=== PATIENT | male | born 2005 | race Caucasian/White ===

== ENCOUNTER 2025-01-22 02:21 | Observation (INO) | payer BC, SELFPAY ==
[2025-01-21 19:22] VITALS: BP 158/98
[2025-01-21 19:39] LABS: Hematocrit 41.7 % (39.0-52.0); Hemoglobin 14.7 g/dL (13.0-18.0); Mean Corp Hgb Conc. 35.3 g/dL (33.0-37.0); Mean Corpuscular Volume 87.2 fL (80.0-94.0); Nucleated Red Blood Cells % 0 % (-); Platelet Count 243 10^3/uL (130-400); Red Cell Dist. Width 12.1 % (11.5-14.5)
[2025-01-21 20:02] LABS: ALT (SGPT) 38 U/L (0-50); AST (SGOT) 66 U/L (17-59); Albumin 5.6 g/dl (3.5-5.0); Alkaline Phosphatase 61 U/L (38-126); Blood Urea Nitrogen 30 mg/dl (9-20); Calcium 10.6 mg/dl (8.4-10.2); Carbon Dioxide 26 mmol/L (22-30); Chloride 99 mmol/L (98-107); Glucose 91 mg/dl (70-99); Potassium 4.6 mmol/L (3.5-5.1); Sodium 137 mmol/L (135-145); Total Protein 8.9 g/dl (6.3-8.2); eGFR 54.92
[2025-01-21 23:23] VITALS: BMI 31.7
[2025-01-21] MEDS: NSS 1000 IV (23:23)
--- NOTE | 2025-01-22 00:07 | ED.GENMED ---
History of Present Illness
General
Chief Complaint: Dehydration Symptoms
Source: patient
Exam Limitations: none
Time Seen by Provider: 01/21/25 22:37
Nursing documentation reviewed up to this point in time: agreed with
History of Present Illness
History of Present Illness:
19-year-old male presenting to the emergency department today with concerns of diffuse crampy discomfort mainly to his legs but also weakness diffusely after playing football today for multiple hours. He claims that this was a very intense workout
and the first of the season. Has been urinating has been drinking plenty of fluids
Review of Systems
Review of Systems
Allergies reviewed?: Yes
All Other Systems: ROS reviewed and negative except as documented in HPI and ROS
Phy Exam
Physical Exam
Physical Exam:
GENERAL: Alert , in no apparent distress
EYE: pupils equal and reactive
NECK: Supple, no significant adenopathy.
ENT: o/p clr, mmm.
CARDIAC: Regular rate and rhythm .
LUNGS: Clear breath sounds bilaterally, no acute respiratory distress, no wheezes/rales/rhonchi
ABDOMEN: Soft, without focal tenderness, no r/g, no cvat
NEUROLOGICAL: Alert and oriented, no focal neuro deficits
SKIN: Warm and dry, skin intact.
MUSCULOSKELETAL: No edema, well perfused.
PSYCH: Normal and appropriate interaction.
Course
Orders/Labs/Results
Orders:
Orders
01/21/25 19:31
CPK [Creatine Phosphokinase] Urgent
Complete Blood Count/With Diff Urgent
Comprehensive Metabolic Panel Urgent
01/21/25 22:55
Urinalysis Reflex To Culture Urgent
Date Specimen was Collected: 01/22/25
Time Specimen was Collected: 01:36
01/21/25 23:00
0.9% Sodium Chloride 1000 ml [Nss] 1,000 ml IV 2,000 mls/hr
01/21/25 23:54
CMP [Comprehensive Metabolic Panel] Urgent
01/22/25 00:11
CKMB [CPK Isoenzyme] Urgent
01/22/25 01:17
EKG [Electrocardiogram (*1)] Urgent
Reason for Study: Fatigue / Weakness
EKG- Treatment ONCE
01/22/25 02:07
Admit/Transfer Patient As Directed
Co-Sign Provider:
Level of Care: Observation services
Assign to:: Medical/Surgical
Physician / Group: Fabienne
Diagnosis: Rhabdomyolysis
Code Status As Directed
Resuscitation Status: Full Code
PRN Pain Medication Management As Directed
May give lesser potent ordered pain med per pt: Yes
preference::
Protocol:: Medication orders for pain may be administered in a
manner that supports deferring to patient preference
when the pt is:
- Requesting an ordered lesser potent pain medication.
Least to most potent pain medications are defined
as: acetaminophen < NSAID < tramadol < opioids
(morphine, oxycodone, hydromorphone).
- Requesting a lesser dose of the same medication IF
ORDERED.
- Requesting a less intrusive route of administration
if both routes are prescribed by the provider (PO <
IV).
01/22/25 02:09
0.9% Sodium Chloride 500 ml [Nss] 500 ml IV BOLUS
01/22/25 02:38
0.9% Sodium Chloride 1000 ml [Nss] 1,000 ml IV 200 mls/hr
Acetaminophen [Tylenol] 650 mg PO Q4HPRN PRN
Bisacodyl [Dulcolax] 10 mg RECTAL [id number] PRN
Docusate W/Senna [Senokot-S] 1 tablet PO BIDPRN PRN
Ondansetron Injectable [Zofran] 4 mg IV Q6HPRN PRN
Polyethylene Glycol Powder [Miralax] 17 grams PO DAILYPRN PRN
01/22/25 02:38
Activity As Directed
Activity Level: As Tolerated
Pneumatic Compression Sleeves As Directed
Type: Knee high
Vital Signs As Directed
Frequency: Per unit guidelines
DX Deep Vein Thrombosis Video Routine
01/22/25 Breakfast
Regular
At Your Request: Full Participation
01/22/25 06:33
Basic Metabolic Panel IN AM
Creatine Phosphokinase IN AM
01/22/25 08:00
HydrOXYZINE [Atarax] 10 mg PO DAILY
Abnormal Lab Results
01/21/25 01/22/25 01/22/25
19:31 00:11 01:38
WBC 14.9 H 10^3/uL
(4.8-10.8)
Abs Immat Gran (auto) 0.1 H 10^3/uL
(0-0.05)
Absolute Neuts (auto) 9.8 H 10^3/uL
(1.4-6.5)
Absolute Monos (auto) 1.9 H 10^3/uL
(0.1-0.6)
Lymphocytes % 19.9 L %
(20.5-51.1)
Monocytes % 12.6 H %
(1.7-9.3)
BUN 30 H mg/dl 30 H mg/dl
(9-20) (9-20)
Creatinine 1.8 H mg/dL
(0.7-1.3)
Calcium 10.6 H mg/dl
(8.4-10.2)
AST 66 H U/L 68 H U/L
(17-59) (17-59)
Creatine Kinase 2951 H U/L
(55-170)
Total Creatine Kinase 3565 H U/L
(55-170)
CK-MB (CK-2) 4.5 H ng/ml
(0.0-3.4)
Total Protein 8.9 H g/dl
(6.3-8.2)
Albumin 5.6 H g/dl
(3.5-5.0)
Urine Ketones 1+ A
(Negative)
01/21/25 19:31
01/22/25 00:11
Vital Signs
Initial and Last Documented VS:
Initial Vital Signs
Temp Pulse Resp BP Pulse Ox
98.6 F 102 16 158/98 98
01/21/25 19:22 01/21/25 19:22 01/21/25 19:22 01/21/25 19:22 01/21/25 19:22
Last Documented Vital Signs
Temp Pulse Resp BP Pulse Ox
98 F 80 16 105/55 99
01/22/25 15:24 01/22/25 15:24 01/22/25 15:24 01/22/25 15:24 01/22/25 15:24
MDM/Problems Addressed
MDM/Problems Addressed:
19-year-old male presenting to the emergency department today with concerns of body cramps and generalized weakness. This occurred after a long and hard football practice today. This was the first of the season. On arrival mildly tachycardic
white count of 14.9 labs showing elevated creatinine and BUN as well as creatinine kinase concerning for early rhabdomyolysis.
*Pulse Oximetry
SaO2: 98
Oxygen Mode of Delivery: Room air
Patient hypoxic: no (99)
*Critical Care Note
Total Time (30-74mins, 75-104mins- exclusive of procedures): Not Applicable
ED Attending Note
-
Portions of this chart may have been created with voice recognition software.� Occasional wrong word or��sound alike� substitutions may have occurred due to the inherent limitations of voice recognition software.
Discharge Plan
Departure
Patient Disposition: Admit
Date of Disposition: 01/22/25
Time of Disposition: 01:21
Admit to: Med/Surg
Admit to doctor: Fabienne
Presentation/result/management discussed w/ accepting MD/DO: Hospitalist
Patient with high blood pressure during this ER visit?: No
Condition: Good
Covid-19: Not Applicable
Discharge Problem:
Rhabdomyolysis
Interventions
Interventions:
*Risk Screen - Suicide Last Done: 01/21/25 19:22
*General Assessment Last Done: 01/21/25 19:22
*Neglect/Abuse Screening Last Done: 01/21/25 19:22
*ED- Fall Risk Assessment Last Done: 01/21/25 19:22
*ED COVID-19 Vaccine History Last Done: 01/21/25 19:22
*Nursing Disposition Last Done: 01/22/25 06:50
ED- Cardiac Assessment Last Done: 01/22/25 01:40
ED- Neurological Assessment Last Done: 01/22/25 01:40
ED- Pulmonary Assessment Last Done: 01/22/25 01:40
[2025-01-22] MEDS: NSS 1000 IV ×2 (00:14→03:07)
[2025-01-22 00:53] LABS: ALT (SGPT) 33 U/L (0-50); AST (SGOT) 68 U/L (17-59); Albumin 4.5 g/dl (3.5-5.0); Alkaline Phosphatase 58 U/L (38-126); Blood Urea Nitrogen 30 mg/dl (9-20); Calcium 9.1 mg/dl (8.4-10.2); Carbon Dioxide 24 mmol/L (22-30); Chloride 105 mmol/L (98-107); Estimated Creatinine Clearance 112 ml/min; Glucose 99 mg/dl (70-99); Potassium 3.8 mmol/L (3.5-5.1); Sodium 137 mmol/L (135-145); Total Protein 6.8 g/dl (6.3-8.2); eGFR > 60.00
[2025-01-22 01:26] LABS: CKMB 4.5 ng/ml (0.0-3.4)
[2025-01-22 01:40] VITALS: BP 131/88
[2025-01-22 01:54] LABS: Urine Character Clear (Clear)
--- NOTE | 2025-01-22 02:10 | HPS.HSE ---
Family Physician
-
Family Physician: * NONE
Chief Complaint
-
Muscle cramps
History of Present Illness
This is a 19-year-old male with no significant past medical history presenting to the emergency department with diffuse crampy discomfort mainly to his legs but also weakness diffusely after playing football today for multiple hours. He claims that
this was a very intense workout and the first of the season.
Patient reports 4 hours of strenuous physical activity where he states he did double reps. After finishing at 4 PM he went home and developed calf cramps. Over time the cramps started affecting his overall legs then body and chest. Reports
fatigue. He denies seeing any swelling. He had difficulty walking. He had attempted to hydrate himself throughout the day with electrolytes and plenty of fluids. Has been urinating has been drinking plenty of fluids. He denies any changes to
the color of his urine. Patient reports use of creatine and carnitine supplements only.
In the emergency department he was afebrile, blood pressure was 130/88 with a pulse of 70 satting 98% on room air. ECG shows a normal sinus rhythm at a rate of [address] or T wave changes. His UA was negative for blood. Mild ketones
slightly elevated specific gravity. His creatinine was elevated to 1.8 on initial admission. Had a white count of 14.9. CBC otherwise unremarkable, electrolytes otherwise normal.
Medical History
Past Medical History
Past Medical History: Reports None
Past Surgical History: Reports None
Social History
Tobacco: Non-smoker
Alcohol: None
Drug: None
Personal: Single
Family History
Family History: Not pertinent
Allergies / Home Medications
Allergies reflects when Allergies were last updated in [facility].
Home Medications with original date entered in [facility]
Allergy/Medication List:
Allergies
Allergy/AdvReac Type Severity Reaction Status Date / Time
No Known Allergies Allergy Verified 01/21/25 19:25
Home Medications
hydroxyzine HCl 10 mg tablet 10 mg PO DAILY 01/22/25
Review of Systems
-
Constitutional: Reports No Symptoms
EENT: Reports No Symptoms
Respiratory: Reports No Symptoms
Cardiac: Reports No Symptoms
Abdomen/GI: Reports No Symptoms
: Reports No Symptoms
Musculoskeletal: Reports No Symptoms
Skin: Reports No Symptoms
Neurological: Reports No Symptoms
Endocrine: Reports No Symptoms
Hematologic/Lymphatic: Reports No Symptoms
Psych: Reports No Symptoms
Physical Exam
Vital Signs
Vital Signs
Temp Pulse Resp BP Pulse Ox
98.6 F 78 16 131/88 98
01/21/25 19:22 01/22/25 01:40 01/22/25 01:40 01/22/25 01:40 01/22/25 01:40
Physical Exam
General: Well Developed, Well Nourished and No Apparent Distress
HEENT: NormoCephalic, Moist mucous membranes and Atraumatic
Respiratory: Clear
Cardiac: S1/S2 and Regular Rhythm; No Murmur or Rub
GI: Soft, Non Tender, Non Distended and Normal Bowel Sounds; No Organomegaly
Rectal: Deferred by Provider
Musculoskeletal: No Clubbing, No Cyanosis and No Edema
Skin: No Rash
Neuro: Nonfocal/grossly intact
Laboratory Results
-
01/21/25 19:31
01/22/25 00:11
Laboratory Results
Total Bilirubin 0.8 mg/dl (0.2-1.3) 01/22/25 00:11
AST 68 U/L (17-59) H 01/22/25 00:11
ALT 33 U/L (0-50) 01/22/25 00:11
Alkaline Phosphatase 58 U/L (38-126) 01/22/25 00:11
Data Reviewed
-
Medical Tests (Nuc Med, Echo, EKG etc): Image Personally Visualized and interpreted
Lab Data: Labs Reviewed by me
Impression/Plan
-
IMPRESSION:
19-year-old presenting to the emergency department with bilateral muscle cramps and aches and pains following intense physical activity for beginning of football season. Found to have mild rhabdo and dehydration. CPK currently over 3000,
creatinine was initially 1.8 down to 1.3 with a BUN of 30. UA is unremarkable. He is urinating normally.
PLAN:
Rhabdomyolysis -mild, likely secondary to acute strenuous activity without comorbid conditions or exacerbating factors
-admit to MedSurg observation
-Continue with 200 mL/h normal saline x 1 L
-Monitor ins and outs
-Trend CPK, if flat or declining, patient likely can be discharged given stable creatinine
-Pain control and antiemetic
DVT prophylaxis�SCDs
CODE STATUS�full code
[2025-01-22] MEDS: NSS 500 IV (02:13)
[2025-01-22 03:11] VITALS: BP 124/66
--- NOTE | 2025-01-22 07:30 | W.PN.HOSP.TC ---
Addendum entered and electronically signed by Rio Escobar MD 01/22/25 19:22:
Attending Addendum:
I saw and evaluated the patient. I reviewed the resident�s note and agree with findings and plan as documented in the resident�s note. Sub: Still with muscle pain now in left side of neck but overall improved. Urinating frequently due to IVF. Wants
to go home. No CP palps fevers chills. Full 12 point ROS reviewed and negative except as documented Exam: Vitals reviewed in chart GEN-NAd heart RRR lungs cta B/L Neck TTP left SM- no LAD abd soft LE no edema
PLAN:
Rhabdomyolysis -secondary to acute strenuous activity without comorbid conditions or exacerbating factors
-start LR @ 200mls/hr x 1 liter prior to DC
-Monitor ins and outs
-CPK trending up still not yet peaked
-encouraged po fluids as OP and no strenuous activity x 1 week then reassess by PCP
-No ekg changes electrolytes WNL
-stable for DC
# Elevated AST- due to rhabdo
# LONNIE- secondaryt o rhabdo and dehydration - resolved prior to DC
DVT prophylaxis�SCDs
CODE STATUS�full code
Time spent coordinating care, DC planning, review of DC plan of care with resident, transition of care, review of records, med rec/scripts sent electronically, consults, notes, d/w consultants, nursing, family, and CM� 31 mins >50% of this time was
devoted to counseling and coordination of care
Original Note:
Today's Communication/Plan
-
Counselled on disease pathology and management
For discharge home and gradual return to regular physical activity after a week
Assessment / Plan
Assessment / Plan
IMPRESSION/PLAN
Rhabdomyolysis, Exertional, Improving
-Monitor ins and outs
-Trend electrolyte/ bun/cr, if flat or declining, discharge
-Discharge home later today
CODE STATUS�full code
Anticipated Discharge: Today
Subjective/Interval History
-
Date of Service: January 22, 2025
Patient met lying in bed
C/o elodia lower leg pain
Objective Data
-
Labs:
Laboratory Results
01/21/25 01/22/25 01/22/25
19:31 00:11 06:33
WBC 14.9 H
Hgb 14.7
Hct 41.7
Plt Count 243
Sodium 137 137 Pending
Potassium 4.6 3.8 Pending
Chloride 99 105 Pending
Carbon Dioxide 26 24 Pending
BUN 30 H 30 H Pending
Creatinine 1.8 H 1.3 Pending
Glucose 91 99 Pending
Calcium 10.6 H 9.1 D Pending
Total Bilirubin 0.9 0.8
AST 66 H 68 H
ALT 38 33
Alkaline Phosphatase 61 58
Vital Signs:
Vital Signs
Temp Pulse Resp BP Pulse Ox
98.6 F 74 16 124/66 97
01/21/25 19:22 01/22/25 03:11 01/22/25 03:11 01/22/25 03:11 01/22/25 03:11
Review of Systems
-
History Source: Patient
Constitutional: Reports No Symptoms
EENT: Reports No Symptoms Reported
Respiratory: Reports No Symptoms
Cardiac: Reports No Symptoms
Abdomen/GI: Reports No Symptoms
Breast: Reports No Symptoms
Genitourinary: Reports No Symptoms
Musculoskeletal: Reports Muscle Pain (Gen Muscle pain, worse in the lower limbs, bilaterally)
Neuro: Reports No Symptoms
Physical Exam
-
General: Well Developed
HEENT: Normocephalic
Respiratory: Clear to Auscultation
Cardiac: Regular Rhythm and S1/S2
GI: Soft, Nontender and Nondistended
Genito-urinary: No Costovertebral Tender
Skin: Warm
Neuro: Awake, Alert and Oriented
Psych: Calm
Data Reviewed
-
Labs: Labs Reviewed by me, Discussed with Physician and Discussed with Patient
[2025-01-22] MEDS: ATARAX 10 MG PO (08:17)
[2025-01-22 08:22] LABS: Blood Urea Nitrogen 25 mg/dl (9-20); Calcium 8.7 mg/dl (8.4-10.2); Carbon Dioxide 24 mmol/L (22-30); Chloride 109 mmol/L (98-107); Estimated Creatinine Clearance > 125 ml/min; Glucose 81 mg/dl (70-99); Sodium 138 mmol/L (135-145); eGFR > 60.00
[2025-01-22] MEDS: LR 500 IV ×3 (08:24→14:01)
[2025-01-22 08:34] VITALS: BP 112/59
--- NOTE | 2025-01-22 10:20 | CM ---
Patient seen bedside in the ED. Initial assessment completed. Patient is a 19-year-old male with no significant past medical history presenting to the emergency department with diffuse crampy discomfort mainly to his legs but also weakness.
Patient resides w/ his parents in a 2, 2 steps to enter. Patient is a college student at [employer], he is an athlete, plays football and when he is not at school, he is w/ parents. Independent in all areas.
Address, points of contact and insurance verified
PCP: Betsy Corcoran
Pharmacy: [facility] [place]
Patient is obs. OOBS form verbally reviewed, copy provided, copy given to to scan in
Plan: Home, no needs
[2025-01-22 12:17] LABS: Blood Urea Nitrogen 19 mg/dl (9-20); Calcium 9.0 mg/dl (8.4-10.2); Carbon Dioxide 26 mmol/L (22-30); Chloride 108 mmol/L (98-107); Estimated Creatinine Clearance > 125 ml/min; Glucose 90 mg/dl (70-99); Potassium 4.2 mmol/L (3.5-5.1); Sodium 138 mmol/L (135-145); eGFR > 60.00
[2025-01-22 15:24] VITALS: BP 105/55
--- NOTE | 2025-01-22 18:05 | W.DCSUMMARY ---
Addendum entered and electronically signed by Rio Escobar MD 01/22/25 19:23:
Read, reviewed, and agree. See same day progress note for additional details.
Toño Escobar MD
Original Note:
Documented by User: Casi Morrell MD, Resident 01/22/25 18:11
Discharge Summary
Discharge Data
Date of Admission: 01/22/25
Date of Discharge: 01/22/25
-
Pending Results: No
Hospital Course
Discharging Physician : Casi Morrell MD , Shawn GREENE
Disposition : Home
Primary care physician : Betsy Burkett
Principal Discharge diagnosis : Rhabdomyolysis
Acute kidney injury
Chronic Discharge diagnosis : Anxuety
Bronchial asthma
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 He gave a history of undergoing intense physical activity earlier that day. Last strenuous activity
was in the winter.
On presentation to the ED, he had cramp pain and tenderness. His vitals were stable and he received hydration with Bolus and mantanance ivf normal saline
He had elevated CK, Normal EKG and elevated BUN/Cr.
Following clinical improvement and recovery of renal function, he was discharged home.
Discharge Plan
-
Patient Disposition: Home (Routine Discharge)
Discharge Diagnosis/Procedures: Rhabdomyolysis -mild, likely secondary to acute strenuous activity without comorbid conditions or exacerbating factors
Acute kidney injury secondary to Rhabdomyolysis
Condition: Good
Diet: No restrictions
Additional Activity: Gradual return to usual physical activity after 1week
Driving Restrictions: As prior to admission
Bathing Restrictions: None
Referrals:
Betsy burkett [Other] - in one week
NONE,* [Family Provider, Internal Medicine]
Prescriptions:
Continued
hydroxyzine HCl 25 mg Tablet
25 mg PO DAILY
hydroxyzine HCl 25 mg Tablet
25 mg PO TIDPRN PRN (Reason: anxiety)
Discharge Orders:
Discharge Patient (As Directed); Ordered 01/22/25
Ordered By: Casi Morrell
Discharge Date and Time
Print Language: PAPUA [place] GUINE[place]

Documented by User: Rio Escobar MD 01/22/25 19:16
Discharge Summary
Discharge Data
Date of Admission: 01/22/25
Date of Discharge: 01/22/25
Discharge Plan
-
Patient Disposition: Home (Routine Discharge)
Discharge Diagnosis/Procedures: Rhabdomyolysis -mild, likely secondary to acute strenuous activity without comorbid conditions or exacerbating factors
Acute kidney injury secondary to Rhabdomyolysis
Condition: Good
Diet: No restrictions
Additional Activity: Gradual return to usual physical activity after 1week
Driving Restrictions: As prior to admission
Bathing Restrictions: None
Referrals:
Betsy D dayannaini [Other] - in one week
NONE,* [Family Provider, Internal Medicine]
Prescriptions:
Continued
hydroxyzine HCl 25 mg Tablet
25 mg PO DAILY
hydroxyzine HCl 25 mg Tablet
25 mg PO TIDPRN PRN (Reason: anxiety)
Discharge Orders:
Discharge Patient (As Directed); Ordered 01/22/25
Ordered By: Casi Morrell
Discharge Date and Time
Print Language: PAPUA NEW GUINEAN
== END 2025-01-23 08:13 | disposition home or self-care (01) ==
LOC: ED 02:21
PROVIDERS: Emergency Medicine; Physician Assistant; ADMITTING PHYSICIAN Internal Medicine; ATTENDING PHYSICIAN Internal Medicine; EMERGENCY PHYSICIAN Student in an Organized Health Care Education/Training Program
DX: M62.82 Rhabdomyolysis (principal); N17.9 Acute kidney failure, unspecified; E86.0 Dehydration; R53.1 Weakness; R53.83 Other fatigue; R79.89 Other specified abnormal findings of blood chemistry; R00.0 Tachycardia, unspecified; F41.9 Anxiety disorder, unspecified; R26.2 Difficulty in walking, not elsewhere classified; R74.01 Elevation of levels of liver transaminase levels; M79.662 Pain in left lower leg; M79.661 Pain in right lower leg; Y93.61 Activity, american tackle football; J45.909 Unspecified asthma, uncomplicated
CPT/HCPCS: 80048; 80053; 81003; 82550; 82553; 85025; 93005; G0378

== ENCOUNTER → 2025-01-27 16:42 | Outpatient (REF) | payer BC, SELFPAY ==
[2025-01-27 17:57] LABS: ALT (SGPT) 38 U/L (0-50); AST (SGOT) 37 U/L (17-59); Albumin 4.8 g/dl (3.5-5.0); Alkaline Phosphatase 65 U/L (38-126); Total Protein 7.5 g/dl (6.3-8.2)
== END ==
LOC: REG 16:42
DX: M62.82 Rhabdomyolysis (principal)
CPT/HCPCS: 36415; 80076; 82550

== ENCOUNTER → 2025-02-01 06:41 | Outpatient (REF) | payer BC, SELFPAY ==
[2025-02-01 07:32] LABS: Hematocrit 42.2 % (39.0-52.0); Hemoglobin 14.4 g/dL (13.0-18.0); Mean Corp Hgb Conc. 34.1 g/dL (33.0-37.0); Mean Corpuscular Volume 90.0 fL (80.0-94.0); Platelet Count 233 10^3/uL (130-400); Red Cell Dist. Width 12.3 % (11.5-14.5)
[2025-02-01 08:25] LABS: ALT (SGPT) 32 U/L (0-50); AST (SGOT) 33 U/L (17-59); Albumin 5.0 g/dl (3.5-5.0); Alkaline Phosphatase 57 U/L (38-126); Total Protein 7.7 g/dl (6.3-8.2)
== END ==
LOC: REG 06:41
DX: E86.0 Dehydration (principal); E88.09 Other disorders of plasma-protein metabolism, not elsewhere classified
CPT/HCPCS: 36415; 80076; 82550; 85027

== ENCOUNTER → 2025-02-09 12:22 | Outpatient (REF) | payer BC, SELFPAY ==
[2025-02-09 13:09] LABS: Hematocrit 41.0 % (39.0-52.0); Hemoglobin 13.8 g/dL (13.0-18.0); Mean Corp Hgb Conc. 33.7 g/dL (33.0-37.0); Mean Corpuscular Volume 89.7 fL (80.0-94.0); Platelet Count 229 10^3/uL (130-400); Red Cell Dist. Width 12.4 % (11.5-14.5)
[2025-02-09 13:50] LABS: ALT (SGPT) 35 U/L (0-50); AST (SGOT) 49 U/L (17-59); Albumin 5.0 g/dl (3.5-5.0); Alkaline Phosphatase 75 U/L (38-126); Total Protein 7.6 g/dl (6.3-8.2)
== END ==
LOC: REG 12:22
DX: E86.0 Dehydration (principal)
CPT/HCPCS: 36415; 80076; 82550; 85027

== ENCOUNTER → 2025-02-11 14:57 | Outpatient (REF) | payer BC, SELFPAY ==
[2025-02-11 16:03] LABS: Urine Character Clear (Clear)
[2025-02-11 16:16] LABS: Blood Urea Nitrogen 18 mg/dl (9-20); Calcium 10.1 mg/dl (8.4-10.2); Carbon Dioxide 27 mmol/L (22-30); Chloride 106 mmol/L (98-107); Glucose 84 mg/dl (70-99); Potassium 4.2 mmol/L (3.5-5.1); Sodium 139 mmol/L (135-145); eGFR > 60.00
== END ==
LOC: REG 14:57
PROVIDERS: ATTENDING PHYSICIAN Family Medicine
DX: M62.82 Rhabdomyolysis (principal); R74.8 Abnormal levels of other serum enzymes
CPT/HCPCS: 36415; 80048; 81003; 82550

== ENCOUNTER 2025-03-20 16:37 | Emergency (ER) | payer BC, SELFPAY ==
[2025-03-20 16:45] VITALS: BP 150/83
--- NOTE | 2025-03-20 19:05 | ED.MUSCINJ ---
HPI-Injury
General
Chief Complaint: Musculo-Skeletal Complaint
Source: patient
Exam Limitations: none
Time Seen by Provider: 03/20/25 18:52
Nursing documentation reviewed up to this point in time: agreed with
History of Present Illness-Injury
Is this injury a work related problem?: No
Is pt an associate of [facility]/[place]?: No
Initial Injury comments:
Patient to ED with right posterior shoulder pain. States he went into a tackle right shoulder first. [place] crunching in his shoulder. Now with pain, limited ROM Incident occurred just BALANCE WHEEL [employer]URN[employer]. To ED accompanied by parents
Past History
Past History
ED Past Medical History: None
ED Past Surgical History: Orthopedic (left shoulder surgery)
Review of Systems
Review of Systems
Allergies reviewed?: Yes
All Other Systems: ROS reviewed and negative except as documented in HPI and ROS
Constitutional: Reports no symptoms
EENT: Reports no symptoms
Respiratory: Reports no symptoms
Cardiac: Reports no symptoms
ABD/GI: Reports no symptoms
: Reports no symptoms
Musculoskeletal: Reports joint pain (pain to right posterior shoulder)
Skin: Reports no symptoms
Neurological: Reports no symptoms
Psychiatric: Reports no symptoms
Musculoskeletal Injury Exam
Musculoskeletal Injury Exam
Right Posterior Shoulder:
Pain with Movement?: Moderate
Tender to palpation?: Moderate
Soft tissue swelling?: None
External deformity and angulation?: None
Joint effusion?: None
Contusion?: Moderate
Hematoma-local bleeding into tissue?: None
Strain- Sprain- Tear (Connective tissue injury)?: Moderate
Crepitus with movement?: No
Joint instability?: No
Malalignment/deformity?: No
Range of motion: Limited
Distal skin color and temperature: normal-warm & good color
Capillary Refill: normal
Normal distal neurovascular exam?: Yes
Peripheral Pulses: radial (right): 3+
Phy Exam
General Physical Exam
General Presentation: well appearing and mild distress
General age: appears stated age
General Skin: warm and dry
General Habitus: normal
Pulmonary Exam
Pulmonary Exam: no respiratory distress
Musculoskeletal Exam
Musculoskeletal Exam: neuro vasc intact
Skin Exam
Skin Exam: normal color, warm/dry and no rash
Psychiatric Exam
Psychiatric Exam: normal mood/affect
Injury Course
Orders/Labs/Results
Orders:
Orders
03/20/25 16:48
EKG [Electrocardiogram (*1)] Urgent
Reason for Study: Chest Pain
03/20/25 16:49
EKG- Treatment ONCE
03/20/25 16:50
CR Shoulder - Right Min 2 View Urgent
Comment:
Reason For Exam: pain
Chest [CR Chest - 2 Views ] Urgent
Comment:
Reason For Exam: pain
03/20/25 19:01
Sling Right-Treatment ONCE
Ibuprofen [Motrin] 600 mg PO NOW STA
*Radiology
Radiology exam reviewed: radiology read reviewed
*Pulse Oximetry
SaO2: 98
Patient hypoxic: no
*Critical Care Note
Total Time (30-74mins, 75-104mins- exclusive of procedures): Not Applicable
Update Note
Update Note:
Patient to ED with right posterior shoulder pain, injured during football game. No A/C pain. Limited ROM due to pain. Neurovasc. intact. No fracture noted on xray. Will place in sling. He will continue to ice, ibuprofen prn, follow up with
orthopedics. patient and family are agreeable to plan.
ED Attending Note
-
Portions of this chart may have been created with voice recognition software.� Occasional wrong word or��sound alike� substitutions may have occurred due to the inherent limitations of voice recognition software.
Discharge Plan
Departure
Patient Disposition: Home (Routine Discharge)
Date of Disposition: 03/20/25
Time of Disposition: 19:01
Patient with high blood pressure during this ER visit?: No
Condition: Good
Covid-19: Not Applicable
Discharge Problem:
Acute shoulder pain
Instructions: Ibuprofen, How to Use a Shoulder Sling, Using Cold for Pain, Shoulder Sprain ED
Prescriptions:
No Action
hydroxyzine HCl 25 mg Tablet
25 mg PO DAILY
hydroxyzine HCl 25 mg Tablet
25 mg PO TIDPRN PRN (Reason: anxiety)
Referrals:
Lovely Fenton I., DO [Active, Orthopedics] - Call in 1-3 days for appt
Betsy Corcoran, PARadhaC [Family Provider, General]
Stand Alone Forms: Back to School
Interventions
Interventions:
*Risk Screen - Suicide Last Done: 03/20/25 16:45
*General Assessment Last Done: 03/20/25 16:45
*Neglect/Abuse Screening Last Done: 03/20/25 18:47
*ED- Fall Risk Assessment Last Done: 03/20/25 18:47
*ED COVID-19 Vaccine History Last Done: 03/20/25 19:20
*ED Influenza Vaccine History Last Done: 03/20/25 19:20
*Nursing Disposition Last Done: 03/20/25 19:20
ED-Musculoskeletal Assessment Last Done: 03/20/25 18:09
Discharge Date and Time
Discharge Date/Time: 03/20/25 19:20
Print Language: BENGALI
[2025-03-20] MEDS: MOTRIN 600 MG PO (19:15)
[2025-03-20 19:19] VITALS: BP 144/84
== END 2025-03-20 19:20 | disposition home or self-care (01) ==
LOC: EMR 16:37
PROVIDERS: EMERGENCY PHYSICIAN Emergency Medicine; FAMILY PHYSICIAN Physician Assistant Medical
DX: M25.511 Pain in right shoulder (principal); W51.XXXA Accidental striking against or bumped into by another person, initial encounter; Y93.61 Activity, american tackle football; Y92.321 Football field as the place of occurrence of the external cause
CPT/HCPCS: 99284; 71046; 73030; 93005

== ENCOUNTER → 2025-03-25 12:20 | Outpatient (REF) | payer BC, SELFPAY | LOC: RAD 12:20 | PROVIDERS: ATTENDING PHYSICIAN Student in an Organized Health Care Education/Training Program | DX: M25.511 Pain in right shoulder (principal) | CPT/HCPCS: 71250 ==